=== PATIENT | male | born 1985 | race Caucasian/White ===

== ENCOUNTER 2017-10-16 18:27 | Emergency (ER) | payer OTHER ==
[~2017-10-16] VITALS: Ht 188 cm; Wt 65.8 kg
--- NOTE | ~2017-10-16 | EKG ---
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
[2017-10-16 23:02] VITALS: BP 100/60
== END 2017-10-16 22:30 | disposition home or self-care (01) ==
LOC: ER 18:27
DX: J93.83 Other pneumothorax (principal); R42 Dizziness and giddiness; R11.0 Nausea